=== PATIENT | male | born 1950 | race Caucasian/White ===

== ENCOUNTER → 2024-10-10 09:35 | Outpatient (REF) | payer MEDICARE, OTHER, SELFPAY ==
[2024-10-10 11:16] LABS: Hematocrit 39.6 % (39.0-52.0); Hemoglobin 13.3 g/dL (13.0-18.0); Mean Corp Hgb Conc. 33.6 g/dL (33.0-37.0); Mean Corpuscular Volume 93.4 fL (80.0-94.0); Platelet Count 211 10^3/uL (130-400); Red Cell Dist. Width 12.2 % (11.5-14.5)
[2024-10-10 11:37] LABS: Blood Urea Nitrogen 29 mg/dl (9-20); Calcium 9.6 mg/dl (8.4-10.2); Carbon Dioxide 26 mmol/L (22-30); Chloride 110 mmol/L (98-107); Glucose 90 mg/dl (70-99); Potassium 4.5 mmol/L (3.5-5.1); Sodium 143 mmol/L (135-145); eGFR > 60.00
== END ==
LOC: SDSPAT 09:35
PROVIDERS: ATTENDING PHYSICIAN Surgery; FAMILY PHYSICIAN Internal Medicine
DX: Z01.818 Encounter for other preprocedural examination (principal)
CPT/HCPCS: 36415; 80048; 85027; 93005

== ENCOUNTER 2024-10-13 06:10 | Day surgery (SDC) | payer MEDICARE, OTHER, SELFPAY ==
[2024-10-10 13:58] VITALS: BMI 25.8
--- NOTE | 2024-10-10 15:56 | PTCARENOTE ---
Abn ECG, Dr. De Luna notified, no further actions requested.
[2024-10-13] VITALS (9 sets, daily range): BP systolic 99–127; BP diastolic 59–77; BMI 25.8
--- NOTE | 2024-10-13 07:08 | W.SUR.PREOP ---
Pre-Operative Surgical Note
-
I have examined this patient prior to the performance of the scheduled procedure.
The patient's condition is unchanged from the time of the current History and
Physical and the patient is able to undergo the scheduled procedure.
[2024-10-13] MEDS: NORMOSOL-R/PLASMALYTE-A 1000 IV (08:41)
[2024-10-13] MEDS: TYLENOL 1000 MG PO (08:41)
--- NOTE | 2024-10-13 12:20 | W.IMMPOSTOP ---
Addendum entered and electronically signed by Hollis Tanner MD 10/13/24 12:30:
#[id number]
Original Note:
Surgical Immed Post Op Note
-
Primary Surgeon: Hollis Tanner MD
Assisting Surgeon: Marleny Powell PA-C
Pre-op Diagnosis: Left inguinal hernia
Post-op Diagnosis: Left inguinal hernia; indirect
Procedure Performed: Robotic assisted laparoscopic repair of left inguinal hernia with mesh; 3D max large mid weight
Anesthesia Type: GETA +0.25% Marcaine with epi
Specimen / Cultures: None
Estimated Blood Loss: 6 mL
Complications: None immediate
Operative Findings: Left indirect inguinal hernia. No lipoma of cord structures identified. Direct and femoral space normal. 3D max large mid weight mesh repair secured to Bashir's ligament with 2-0 Vicryl stitch x 2. Right inguinal region
unremarkable as well.
The assistance of Marleny Powell PA-C was required due to the complexity of the procedure. During the procedure Marleny Powell PA-C assisted with port placement, robotic instrumentation and suture material exchanges, and closure of the surgical incision
sites. I was present for the entirety of the operative procedure.
== END 2024-10-13 13:48 | disposition home or self-care (01) ==
LOC: SDS 06:10
PROVIDERS: ATTENDING PHYSICIAN Surgery; FAMILY PHYSICIAN Internal Medicine
DX: K40.90 Unilateral inguinal hernia, without obstruction or gangrene, not specified as recurrent (principal)
CPT/HCPCS: 49650; C1781